=== PATIENT | male | born 1965 | race Caucasian/White ===

== ENCOUNTER 2023-05-17 06:31 | Day surgery (SDC) | payer BC, SELFPAY ==
[2023-05-17 06:53] VITALS: BP 133/92; PULSE 90; RESP 18; TEMP 36.2; O2SAT 98
[2023-05-17] MEDS: sodium chloride 0.9% 1,000 ML 30 ML IV (07:03)
[2023-05-17 07:08] LABS: Glucose Point of Care 168 mg/dL (70-110)
--- NOTE | 2023-05-17 07:23 | P.ANESASSM_ITS ---
Pre-Anesthetic Assessment Height/Weight: Height 1.8 m Weight 130.635 kg Temp Pulse Resp BP Pulse Ox O2 Del Method 97.1 F L 90 18 133/92 98 Room Air 05/17/23 06:53 05/17/23 06:53 05/17/23 06:53 05/17/23 06:53 05/17/23 06:53 05/17/23 06:53 Preop Diagnosis: screening Operation Date: 05/17/23 08:00 Proposed Procedures p Colonoscopy 29459,Z12.11(Not Applicable) - Nathan Ocampo DO Familial anesthetic complications: hard to wake up Was Beta Bob taken within 24 hours: N/A Was Clonidine taken within 24 hours: N/A Last intake: Intake Last Liquid Date 05/16/23 Last Liquid Time 00:00 Last Solid Date 05/15/23 Last Solid Time 00:00 Social No alcohol and No tobacco Exam alert, oriented x 3, clear to auscultation bilaterally and regular rate & rhythm Airway Submandibular: within normal limits Cervical ROM: within normal limits Mallampati: Class II Dentition: chipped Pulmonary None reported CV/HEM Hypertension None reported Hepatic None reported GI None reported Metabolic Diabetes Mellitus, Hyperlipidemia and Morbid Obesity [facility] [place] None reported Neuropsych None reported Anesthetic Plan ASA status: 3 Anesthesia: MAC Medications/Allergies Home Medications Medication Instructions Recorded Confirmed Last Taken Type atorvastatin 10 mg tablet 1 tab PO DAILY 04/17/23 05/17/23 05/16/23 History celecoxib 100 mg capsule 1 ea PO BID 04/17/23 05/17/23 05/16/23 History cyclobenzaprine 10 mg tablet 1 tab PO BID 04/17/23 05/17/23 05/16/23 History hydrochlorothiazide 25 mg tablet 1 tab PO DAILY 04/17/23 05/17/23 05/16/23 History semaglutide 2 mg/dose (8 mg/3 mL) 2 mg SUBCUT .Saturday04/17/23 05/15/23 05/04/23 History subcutaneous pen injector (Ozempic) tramadol 50 mg tablet 1 tab PO PRN pain 04/17/23 05/17/23 05/10/23 History Allergies Allergy/AdvReac Type Severity Reaction Status Date / Time lisinopril Allergy Mild respiratory Uncoded 05/15/23 09:49 problems Current Medications Generic Name Dose Route Start Last Admin Trade Name Freq PRN Reason Stop Dose Admin Sodium Chloride 1,000 mls @ 30 mls/hr 05/17/23 06:45 05/17/23 07:03 Sodium Chloride 0.9% IV 05/18/23 06:44 30 mls/hr .Q24H ROCKY Administration PFSH Anesthesia Family History Unknown Diabetes Mother Thyroid disease Father Cancer lung cancer Brother Kidney failure Social History Smoking and tobacco/nicotine status: former use of tobacco/nicotine Alcohol intake: never Data Anesthesia Cardiac Studies: No Data to Display
--- NOTE | 2023-05-17 07:41 | W.PM.OPSUD ---
Surgery/Procedure H&P Update DATE OF PROCEDURE: May 17, 2023 DATE H&P PERFORMED: 04/17/23 H&P UPDATE INFORMATION: I have reviewed H&P completed within last 30 days, I have examined patient prior to procedure and No changes to prior documentation PREOP DIAGNOSIS: screening PLANNED PROCEDURE: Operation Date: 05/17/23 08:00 Proposed Procedures p Colonoscopy 75268,Z12.11(Not Applicable) - Nathan Ocampo, DO
[2023-05-17 08:16] VITALS: BP 127/87; PULSE 90; RESP 18; TEMP 36.1; O2SAT 92
[2023-05-17 08:25] VITALS: BP 130/90; PULSE 91; RESP 18; O2SAT 96
--- NOTE | 2023-05-17 13:49 | ANE.PACU2 ---
Inpatient post-anesthesia follow up: Airway intact: Yes Vital signs: Temperature 97 F Pulse Rate 91 Respiratory Rate 18 Blood Pressure 130/90 Pulse Oximetry 96 Oxygen Delivery Me thod Room Air Oxygen Flow Rate 3 Fraction of Inspir ed Oxygen Hydration adequate: Yes Nausea and vomiting: No Pain level: 2 Mental status: Baseline
== END 2023-05-17 09:00 | disposition home or self-care (01) ==
PROVIDERS: PCP Nurse Practitioner Family; Visit Provider Surgery
PROC: 0DJD8ZZ Inspection of Lower Intestinal Tract, Via Natural or Artificial Opening Endoscopic (ICD-10-PCS; CPT 45378; principal; 2023-05-17 08:00)
DX: Z12.11 Encounter for screening for malignant neoplasm of colon (principal); K64.8 Other hemorrhoids; I10 Essential (primary) hypertension; E11.9 Type 2 diabetes mellitus without complications; E78.5 Hyperlipidemia, unspecified; E66.01 Morbid (severe) obesity due to excess calories; Z68.41 Body mass index [BMI] 40.0-44.9, adult; Z87.891 Personal history of nicotine dependence
CPT/HCPCS: 36416; 45378; 82962; J2704; J7030